=== PATIENT | male | born 1965 | race Hispanic/Latino ===

== ENCOUNTER → 2017-10-27 | Outpatient (CLI) | payer OTHER ==
--- NOTE | 2017-10-27 12:55 | Diagnostic Imaging Report ---
PROCEDURE: Frontal and lateral views of the chest. COMPARISON: None. INDICATIONS: DISORDER OF THE KIDNEY FINDINGS: Lines/tubes: None. Lungs: The lungs are well inflated and clear. There is no evidence of pneumonia or pulmonary edema. Pleura: There is no pleural effusion or pneumothorax. Heart and mediastinum: The heart and the mediastinum are normal. Bones: No acute bony abnormality. Degenerative changes of the thoracic spine. IMPRESSION: No acute radiographic abnormality. Dictated by: Miguel Silva M.D. on 10/27/2017 at 12:55 Electronically approved by: Miguel Silva M.D. on 10/27/2017 at 12:55
--- NOTE | 2017-10-27 16:22 | Diagnostic Imaging Report ---
PROCEDURE:US RETROPERITONEAL ( KIDNEY ). COMPARISON:None. INDICATIONS:DISORDER OF THE KIDNEYS AND URETER TECHNIQUE: Hill-scale and color sonographic images of the bilateral kidneys and bladder where obtained in transverse and longitudinal planes. FINDINGS: RIGHT KIDNEY: 11.8 cm in length Cysts: None Solid masses: None Stones: None Hydronephrosis: None Echogenicity: Normal LEFT KIDNEY: 11.4 cm in length Cysts: None Solid masses: None Stones: None Hydronephrosis: None Echogenicity: Normal Bladder: Normal. Ureteral jets are visible Prostate: Measures 3.4 x 3.8 x 2.3 cm. Echotexture is normal. Survey images of the liver demonstrate no mass. The echotexture is increased suggesting steatosis. CONCLUSION: Sonographically normal kidneys and bladder. Increased hepatic echotexture suggestive of steatosis. Dictated by: Jeffry Duong M.D. on 10/27/2017 at 16:22 Electronically approved by: Jeffry Duong M.D. on 10/27/2017 at 16:22
== END ==
LOC: US 11:39
PROVIDERS: ATTEND Urology
DX: N28.9 Disorder of kidney and ureter, unspecified (principal); R31.21 Asymptomatic microscopic hematuria
CPT/HCPCS: 71046; 76770

== ENCOUNTER → 2017-11-17 | Outpatient (CLI) | payer OTHER ==
[~2017-11-17] MED LIST: GADOBENATE DIMEGLUMINE 1 ML IV ONE
--- NOTE | 2017-11-18 11:56 | Diagnostic Imaging Report ---
EXAM: MRI of the abdomen with and without contrast. INDICATION: Hematuria. COMPARISON: Renal ultrasound dated 10/27/2017. TECHNIQUE: Multiplanar and multisequence imaging was performed of the abdomen. T1 and T2-weighted images were obtained with and without contrast. T1-weighted in and [id number] , Dynamic, post gadolinium T1-weighted spoiled gradient echo scans. IV Contrast: 18 cc of MultiHance Oral Contrast: None. Medications: None DISCUSSION: LOWER THORAX: Unremarkable. HEPATOBILIARY: Diffuse signal loss on out of phase images, consistent with steatosis. No focal hepatic lesions. No biliary ductal dilation. GALLBLADDER: Not visualized. SPLEEN: No splenomegaly. PANCREAS: No focal masses or ductal dilatation. ADRENALS: No adrenal nodules KIDNEYS/URETERS: Kidneys enhance symmetrically. No hydronephrosis. 3.6 x 3.3 cm left renal midpole mildly T2 hyperintense, T1 isointense lesion (series 3, image 13), demonstrating mild postcontrast enhancement. GI TRACT: Visualized bowel loops are unremarkable. No evidence of frontal obstruction. LYMPH NODES: No lymphadenopathy. VESSELS: Unremarkable. BONES: Unremarkable. SOFT TISSUES: Unremarkable. IMPRESSION: Mildly enhancing 3.6 cm left renal midpole mass is highly concerning for renal cell carcinoma. Hepatic steatosis. Signed by: Dr. Mike Bird MD on 11/18/2017 11:53 AM
== END | disposition home or self-care (01) ==
LOC: MRI 13:50
PROVIDERS: ATTEND Urology
DX: N28.9 Disorder of kidney and ureter, unspecified (principal); K76.0 Fatty (change of) liver, not elsewhere classified
CPT/HCPCS: 74183

== ENCOUNTER → 2019-10-08 | Outpatient (CLI) | payer OTHER ==
--- NOTE | 2019-10-08 12:22 | Diagnostic Imaging Report ---
EXAM: Renal Ultrasound INDICATION: ^MALIGNANT NEOPLASM OF LEFT KIDNEY COMPARISON: None TECHNIQUE: Transverse and longitudinal images of the kidneys and bladder were obtained. FINDINGS: Right Kidney: Length: 10.8 cm Appearance: Normal echogenicity. Collecting system: No hydronephrosis Stones: None Cyst/Mass: None Left Kidney: Length: 11.1 cm Appearance: Normal echogenicity. Collecting system: No hydronephrosis Stones: None Cyst/Mass: None Bladder: No mass or calculi. Bilateral ureteral jets visualized. Prevoid volume estimate of 82 cc. Prostate measures 2.6 x 1.6 x 3.2 cm, volume estimate of 7 cc. IMPRESSION: Status post left partial nephrectomy. No hydronephrosis, renal calculi, or solid mass lesion. Signed by: Anabel Anthony MD on 10/08/2019 12:20 PM
--- NOTE | 2019-10-08 12:23 | Diagnostic Imaging Report ---
EXAMINATION: CHEST 2 VIEWS INDICATION: Renal malignancy COMPARISON: None FINDINGS: LINES/TUBES:None LUNGS:The lungs are well-inflated. No focal consolidation or pulmonary edema. No radiographically apparent pulmonary nodules. PLEURA:No pleural effusion or pneumothorax. MEDIASTINUM:The cardiomediastinal silhouette appears normal in size and shape. BONES/SOFT TISSUES:No acute osseous injury. ABDOMEN:No free air under the diaphragm. Status post cholecystectomy. IMPRESSION: No focal pneumonia or pulmonary edema. No radiographically apparent pulmonary nodules. Signed by: Anabel Anthony MD on 10/08/2019 12:21 PM
== END ==
LOC: US 11:34
PROVIDERS: ATTEND Urology
DX: C64.2 Malignant neoplasm of left kidney, except renal pelvis (principal); D41.02 Neoplasm of uncertain behavior of left kidney
CPT/HCPCS: 71046; 76770